=== PATIENT | female | born 1975 | race Caucasian/White ===

== ENCOUNTER 2023-02-11 12:34 | Outpatient (REF) | payer OTHER, SELFPAY ==
[2023-02-11 13:58] LABS: Cholesterol* 219 mg/dL (90-199); HDL Cholesterol* 58 mg/dL (>=50); LDL Cholesterol Calculated 128 mg/dL (<100); TSH With Reflex to FT4* 0.832 uIU/mL (0.270-4.200); Triglycerides* 165 mg/dL (40-149); Vitamin D 25 Hydroxy* 40 ng/mL (30-80)
[2023-02-13 08:32] LABS: DHEAS 36 ug/dL (35-256)
[2023-02-16 15:20] LABS: Sex Hormone Binding Globulin 36 nmol/L (25-122); Testosterone, Free LC-MS/MS 2.2 pg/mL (1.1-5.8); Testosterone, LC-MS/MS 14 ng/dL (9-55)
[2023-02-18 16:10] LABS: Iron* 142 ug/dL (37-170)
[2023-02-18 16:20] LABS: Percent Iron Saturation 38 % (20-50); Total Iron Binding Capacity 371 ug/dL (265-497)
[2023-02-20 20:45] LABS: Anti-Nuclear Ab(ANA)IgG ELISA None Detected (None Detected)
== END 2023-02-11 12:35 | disposition home or self-care (01) ==
LOC: NPINS 12:34
PROVIDERS: PCP Family Medicine
DX: L65.9 Nonscarring hair loss, unspecified (principal); E78.5 Hyperlipidemia, unspecified
CPT/HCPCS: 80061; 82306; 82627; 83540; 83550; 84270; 84402; 84403; 84443; 86039

== ENCOUNTER 2024-02-20 14:59 | Outpatient (CLI) | payer OTHER, SELFPAY ==
--- OUTSIDE RECORDS SUMMARY | 2024-02-20 15:01 | XMS_ITS | Encounter Summary ---
Author Organization [facility] Address [address] [place] [id number] Care Team Providers Care Environmental Health Sanitarian Name Role Phone Pilar Herrera MD Primary Care Provider [phone] Neelima Kramer MD Primary Care Provide r No Ref-Primary, Physician Primary Care Provider Reason for Visit * Reason Onset Date Comments MyChart Communication 07/11/2013 Encounter Details Date Type Department Care Team (Latest Contact Info) Description 07/11/2013 [facility] Medical Advice [address] [address] Pilar Herrera MD [address] [place] [address] [phone] MyChart Communication Social History Tobacco Use Types Packs/Day Years Used Date Smoking Tobacco: Never Smokeless Tobacco: Never Comments:non smoking house Alcohol Use Standard Drinks/Week Comments Yes 0 (1 standard drink = 0.6 oz pur e alcohol) casual Sex and Gender Information Value Date Recorded Sex Assigned at Not on file Gender Identity Not on file Sexual Orientation Not on file documented as of this encounter Plan of Treatment Not on file documented as of this encounter Visit Diagnoses Not on filedocumented in this encounter Care Teams Environmental Health Sanitarian Relationship Specialty Start Date End Date Pilar Herrera MD PCP - General 07/14/07 12/23/14 Neelima Kramer MD [facility]NAMEL[facility] CONS[facility] [address] [phone] PCP - General senior structural engineer 12/24/14 03/12/18 No Ref-Primary, Physician PCP - General 03/13/18 documented as of this encounter
--- OUTSIDE RECORDS SUMMARY | 2024-02-20 15:01 | XMS_ITS | Clinical Summary ---
Author Organization [facility] Address [place], [place] [address] Care Team Providers Care Precision Dyer Name Role Phone Pcp, No Primary Care Provider Unavailabl e Active Problems Problem Noted Date Diagnosed Date DEGENERATION, PERIPHERAL RETINAL NOS 06/28/1998 Immunizations Name Administration Dates Next Due Influenza Virus, Unspecified 03/07/2012 Influenza, IIV3 (Age 6-35 mos) 03/07/2012 Influenza, IIV3 (Age >=3 years) 02/25/2011,03/09,02/18/2009,03/27/2008 Influenza, IIV4 03/16/2021, 0,04/14/2015,03/14/2014, 03/06/2013 Tdap 10/30/2007 Family History Medical History Relation Name Comments Genetic Other FATHER: HYPERTE NSION Relation Name Status Comments Other Social History Tobacco Use Types Packs/Day Years Used Date Smoking Tobacco: Never Assessed Social Connections Answer Date Recorded Frequency of Communication with Friends and Fami ly Not on file 05/23/2021 Financial Resource Strain Answer Date R ecorded Difficulty of Paying Living Expenses Not on file 05/23/2021 Difficulty of Paying Living Expenses Not on file 05/23/2021 Sex and Gender Information Value Date Recorded Sex Assigned at Not on file Gender Identity Not on file Sexual Orientation Not on file Obstetrics History Plan of Treatment Health Maintenance Due Date Last Done Comments Depression screening for age 12+ 1986 HIV for age 15-65 1989 BMI (ht and wt on same day) for age 18+ 1992 Hepatitis C screening for age 18-79 1992 Pap test for age 21-65 11/08/1995 Tetanus booster 10/29/2017 10/30/2007 Colonoscopy through age 75 11/08/2019 Lipids for age 45-75 11/08/2019 Mammogram for age 45-75 02/14/2021 02/15/2020 COVID-19 vaccine series ( season) 2024 Influenza for age 9-49 01/22/2024 1, 01/25/2020, 04/14/2015, Additional history exists Tdap Completed 10/30/2007 Pneumococcal series for age 6-64 Aged Out No longer eligible based on patient's age to complete this topic Procedures Procedure Name Priority Date/Time Associated Diagnosis Comments XR MAMMO YUMIKO BILAT SCREEN Routine 02/15/2020 10:03 AM CDT Visit for screening mammogram from Last 3 Months or Most Recently Relevant to Health Maintenance Results * XR MAMMO YUMIKO BILAT SCREEN (02/15/2020 10:03 AM CDT) Anatomical Region Laterality Modality BREASTS, Breast Left, Breast Right Bilateral Mammography Impressions 02/15/2020 3:39 PM CDT ??There is no radiographic evidence for malignancy. ??Recommend annual mammograms. A lay language report of this examination will be provided to the patient. MAMMOGRAM ASSESSMENT: ??ACR 1 Negative Narrative 02/15/2020 3:39 PM CDT XR MAMMO YUMIKO BILAT SCREEN [[id number]] CLINICAL HISTORY: ??This is an asymptomatic 44 y.o. patient. INDICATION FOR EXAM: Mammogram Screening. TECHNIQUE: CC & MLO views were obtained. ??This digital study was evaluated with the assistance of Computer-Aided Detection. Breast Tomosynthesis was used in interpretation. COMPARISON FILM: Yes 06/15/18 Outside Facility 04/30/16 Outside Facility FINDINGS: ??Mammographically, the breast tissue is heterogeneously dense, which could obscure detection of small masses. There are no dominant masses, suspicious micro calcifications or areas of architectural distortion. Mable Hernández MD MAMMO from Last 3 Months or Most Recently Relevant to Health Maintenance Care Teams Precision Dyer Relationship Specialty Start Date End Date Pcp, No . PCP - General 02/15/20
--- OUTSIDE RECORDS SUMMARY | 2024-02-20 15:01 | XMS_ITS | Referral Summary ---
Author Organization [facility] Address [address] [place] [address] Care Team Providers Care Treadle Cut Off Saw Operator Name Role Phone No Ref-Primary, Physician Primary Care Provider Allergies Active Allergy Reactions Criticality Noted Date Comments No Known Drug Allergy 07/15/2003 Medications Medication Sig Dispensed Refills Start Date End Date Status cefdinir (OMNICEF) 300 MG capsuleIndications:A cute sinusitis with symptoms > 10 days Take 1 capsule (300 mg) by mouth 2 times daily 20 capsule 03/13/2018 Active benzonatate (TESSALON) 200 MG capsuleIndications:A cute sinusitis with symptoms > 10 days Take 1 capsule (200 mg) by mouth 3 times daily as needed for cough 30 capsule 03/13/2018 Active Active Problems Problem Noted Date Diagnosed Date CARDIOVASCULAR SCREENING; LDL GOAL LESS THAN 160 03/22/2010 Resolved Problems Problem Noted Date Diagnosed Date Resolved Date Pain in joint, pelvic region and thigh 02/06/2013 02/19/2013 Immunizations Name Administration Dates Next Due Influenza (IIV3) PF 03/07/2012, 1,03/09/2010, 009,03/27/2008 Influenza Vaccine >6 months,quad, PF 04/14/2015, 03/14/2014,03/06/2013 TDAP Vaccine (Adacel) 10/30/2007 Social History Tobacco Use Types Packs/Day Years Used Date Smoking Tobacco: Never Smokeless Tobacco: Never Comments:non smoking house Alcohol Use Standard Drinks/Week Comments Yes 0 (1 standard drink = 0.6 oz pur e alcohol) casual PHQ-2 Answer Date Recorded PHQ-2 Score 0 03/13/2018 Adolescent Education Answer Date Record ed Getting School Help Needed Not on file 02/27 Sex and Gender Information Value Date Recorded Sex Assigned at Not on file Gender Identity Not on file Sexual Orientation Not on file Last Filed Vital Signs Vital Sign Reading Time Taken Comments Blood Pressure 134/84 03/13/2018 4:01 PM CDT Pulse 65 03/13/2018 4:01 PM CDT Temperature 36.7 ??C (98.1 ??F) 03/13/2018 4:01 PM CD T Respiratory Rate 16 09/29/2016 4:20 PM CDT Oxygen Saturation 100% 03/13/2018 4:01 PM CDT Inhaled Oxygen Concentration - - Weight 55.3 kg (122 lb) 03/13/2018 4:01 PM CDT Height 158.8 cm (5' 2.5) 03/13/2018 4:01 PM CDT Body Mass Index 21.96 03/13/2018 4:01 PM CDT Plan of Treatment Not on file Care Teams Treadle Cut Off Saw Operator Relationship Specialty Start Date End Date No Ref-Primary, Physician PCP - General 03/13/18
--- OUTSIDE RECORDS SUMMARY | 2024-02-20 15:01 | XMS_ITS | Encounter Summary ---
Author Organization [facility] Address [address] [place] [address]. [place] [address] Care Team Providers Care Envelope Fold Operator Name Role Phone Pilar Herrera MD Primary Care Provider [phone] Neelima Kramer MD Primary Care Provide r No Ref-Primary, Physician Primary Care Provider Encounter Details Date Type Department Care Team (Late st Contact Info) Description 07/17/2012 [facility] Medical Advice [address] [address] Pilar Herrera MD [address] [place] [address] [phone] Social History Tobacco Use Types Packs/Day Years [...] on filedocumented in this encounter Care Teams Envelope Fold Operator Relationship Specialty Start Date End Date Pilar Herrera MD PCP - General 07/14/07 12/23/14 Neelima Kramer MD [facility] [address] [phone] PCP - General speech assistant 12/24/14 03/12/18 No Ref-Primary, Physician PCP - General 03/13/18 documented as of this encounter
--- OUTSIDE RECORDS SUMMARY | 2024-02-20 15:01 | XMS_ITS | Encounter Summary ---
Author Organization [facility] Address [address] [place] [address]. [place] [address] Care Team Providers Care Aerologist Name Role Phone Pilar Herrera MD Primary Care Provider [phone] Neelima Kramer MD Primary Care Provide r No Ref-Primary, Physician Primary Care Provider Encounter Details Date Type Department Care Team (Late st Contact Info) Description 12/06/2011 [facility] Medical Advice [address] [address] Pilar Herrera MD [address] [place] [phone] Social History Tobacco Use Types Packs/Day Years [...] on filedocumented in this encounter Care Teams Aerologist Relationship Specialty Start Date End Date Pilar Herrera MD PCP - General 07/14/07 12/23/14 Neelima Kramer MD [facility] PSYCHOLOGY TECHNICIAN CONSULT [address] [phone] PCP - General welder operator 12/24/14 03/12/18 No Ref-Primary, Physician PCP - General 03/13/18 documented as of this encounter
--- OUTSIDE RECORDS SUMMARY | 2024-02-20 15:01 | XMS_ITS | Encounter Summary ---
Author Organization [facility] Address [address] [place] [address]. [place] [address] Care Team Providers Care Marketing Manager Health Communications Name Role Phone Pilar Herrera MD Primary Care Provider [phone] Neelima Kramer MD Primary Care Provide r No Ref-Primary, Physician Primary Care Provider Encounter Details Date Type Department Care Team (Late st Contact Info) Description 12/01/2011 [facility] [place] Medical Advice [address] [address] Pilar Herrera MD [address] [place] [phone] Social History Tobacco Use Types Packs/Day Years [...] on filedocumented in this encounter Care Teams Marketing Manager Health Communications Relationship Specialty Start Date End Date Pilar Herrera MD PCP - General 07/14/07 12/23/14 Neelima Kramer MD [facility] HUMAN RESOURCES COMPLIANCE MANAGER CONSULT [address] [phone] PCP - General licensed therapist 12/24/14 03/12/18 No Ref-Primary, Physician PCP - General 03/13/18 documented as of this encounter
--- OUTSIDE RECORDS SUMMARY | 2024-02-20 15:01 | XMS_ITS | Clinical Summary ---
Author Organization [facility] Address [address] [place] [address] Care Team Providers Care Men'S Swim Coach Name Role Phone No Ref-Primary, Physician Primary [...] PF 04/14/2015, 03/14/2014,03/06/2013 TDAP Vaccine (Adacel) 10/30/2007 Family History Medical History Relation Comments Hypertension Father Lipids Father Cancer Maternal Grandmother Relation Status Comments Father Alive Maternal Grandfather Maternal Grandmother Mother Alive Paternal Grandfather Alive Paternal Grandmother Alive Social History Tobacco Use Types Packs/Day Years [...] of Treatment Not on file Care Teams Men'S Swim Coach Relationship Specialty Start Date End Date No Ref-Primary, Physician PCP - General 03/13/18
--- NOTE | 2024-02-20 15:20 | CRLHL7_ITS ---
For Patients: As a result of the Century Cures Act, medical imaging exams and procedure reports are released immediately into your electronic medical record. You may view this report before your referring provider. If you have questions, please contact your health care provider. BILATERAL SCREENING MAMMOGRAM WITH COMPUTER-AIDED DETECTION AND TOMOSYNTHESIS TECHNIQUE: CC and MLO views were obtained. These mammographic images have been obtained using full-field digital technique. These mammographic images were interpreted with the benefit of computer-aided detection. Breast Tomosynthesis was used in this interpretation. COMPARISON FILM: 09/29/22, 06/12/21, 02/15/20. FINDINGS: The breasts are heterogeneously dense, which may obscure small masses IMPRESSION: There is no radiographic evidence for malignancy. ASSESSMENT: BI-RADS Category 2: Benign RECOMMENDATION: Routine screening mammogram in 1 year. A lay language report of this examination will be provided to the patient. Oli Kenny M.D. Diagnostic Radiologist [email or web address] BRITTNEY/Dictated by: Oli Kenny MD @ 02/21/2024 8:56:00 AM (Electronically Signed)
== END 2024-02-20 15:00 | disposition home or self-care (01) ==
LOC: MAMMO 14:59
PROVIDERS: PCP Family Medicine; Visit Provider Family Medicine
DX: Z12.31 Encounter for screening mammogram for malignant neoplasm of breast (principal); R92.333 Mammographic heterogeneous density, bilateral breasts
CPT/HCPCS: 77063; 77067

== ENCOUNTER 2025-02-26 15:48 | Outpatient (CLI) | payer OTHER, SELFPAY ==
--- NOTE | 2025-02-26 16:00 | CRLHL7_ITS ---
For Patients: As a result of the Century Cures Act, medical imaging exams and procedure reports are released immediately into your electronic medical record. You may view this report before your referring provider. If you have questions, please contact your health care provider. INDICATION: BILATERAL SCREENING MAMMOGRAM, ASYMPTOMATIC 49 Y/O FEMALE COMPARISON: 02/20/2024, 09/29/2022, 06/12/2021 TECHNIQUE: Digital mammogram in CC and MLO projections including computer-aided detection (CAD) and tomosynthesis. BREAST COMPOSITION: The breasts are heterogeneously dense, which may obscure small masses. FINDINGS: No suspicious findings. ASSESSMENT: BI-RADS 1 Negative RECOMMENDATION: Annual screening mammogram. A lay language report of this examination will be provided to the patient. Dictated by: Oli Kenny MD @ 02/27/2025 09:22:35 (Electronically Signed)
== END 2025-02-26 15:49 | disposition home or self-care (01) ==
LOC: MAMMO 15:48
PROVIDERS: PCP Family Medicine; Visit Provider Family Medicine
DX: Z12.31 Encounter for screening mammogram for malignant neoplasm of breast (principal); R92.333 Mammographic heterogeneous density, bilateral breasts
CPT/HCPCS: 77063; 77067